=== PATIENT | female | born 1975 | race Caucasian/White ===

== ENCOUNTER 2017-06-07 04:23 | Emergency (ER) | payer OTHER, SELFPAY ==
--- NOTE | 2017-06-07 09:22 | RAD ---
ABDOMEN 2 VIEWS WITH CHEST 1 VIEW: Date: 06/07/17 HISTORY: 41-year-old female with syncope, blurry vision, passed out. FINDINGS: No acute intrathoracic disease. There are some mild increased markings in the lung bases, which could represent some mild subsegmental atelectasis versus chronic change. No evidence for bowel obstructio n, overt calculus, or free air. IMPRESSION: Unremarkable abdomen 2 views. Minimal patchy bibasilar parenchymal changes, nonspecific, possibly yulia e subsegmental atelectasis without confluent pneumonia. POS: [facility]
== END 2017-06-07 07:30 | disposition home or self-care (01) ==
LOC: ERS 04:23
DX: R55 Syncope and collapse (principal); R10.84 Generalized abdominal pain; H92.02 Otalgia, left ear; F17.210 Nicotine dependence, cigarettes, uncomplicated; Z86.73 Personal history of transient ischemic attack (TIA), and cerebral infarction without residual deficits
CPT/HCPCS: 74022; 93005; 99406

== ENCOUNTER 2017-06-17 02:22 | Emergency (ER) | payer SELFPAY ==
[2017-06-17 04:12] LABS: #Basophils 0.1 thou/uL (0.0-0.2); #Eosinphils 0.8 thou/uL (0.0-0.7); #Lymphocytes 3.6 thou/uL (1.20-3.40); #Monocytes 0.7 thou/uL (0.11-0.59); #Neutrophils 3.9 thou/uL (1.40-6.50); %Basophils 0.6 % (0.0-1.0); %Eosinophils 8.8 % (0.0-10.0); %Lymphocytes 39.5 % (21.0-51.0); %Monocytes 7.4 % (0.0-10.0); %Neutrophils 43.8 % (42.0-75.0); Hemoglobin 9.9 g/dL (12.0-16.0); Mean Corpuscular HGB CONC 31.4 g/dL (32.0-36.0); Mean Corpuscular Hemoglobin 29.6 pg (27.0-31.0); Mean Corpuscular Volume 94.5 fl (81.0-99.0); Mean Platelet Volume 7.5 fL (7.4-10.4); Platelet Count 318 thou/uL (130-400); RBC Distribution Width 16.4 % (11.5-14.5); Red Blood Cell (RBC) Count 3.35 mill/uL (4.20-5.40)
[2017-06-17 04:41] LABS: ALT (SGPT) 22 U/L (8-55); AST (SGOT) 20 U/L (5-34); Albumin 3.7 g/dL (3.5-5.0); Alkaline Phosphatase 94 U/L (40-150); Anion Gap 14 mmol/L (10-20); BUN (Urea Nitrogen) 7 mg/dL (7.0-18.7); Bilirubin, Total 0.2 mg/dL (0.2-1.2); Calc. Creatinine Clearance 0 mL/min (70-130); Calcium 8.8 mg/dL (7.8-10.44); Carbon Dioxide 21 mmol/L (22-29); Chloride 108 mmol/L (98-107); Estimated GFR-MDRD 87; Globulin 3.2 g/dL (2.4-3.5); Glucose 87 mg/dL (70-105); Potassium 3.4 mmol/L (3.5-5.1); Protein, Total 6.9 g/dL (6.0-8.3); Sodium 140 mmol/L (136-145)
== END 2017-06-17 05:23 | disposition home or self-care (01) ==
LOC: ERS 02:22
DX: K08.89 Other specified disorders of teeth and supporting structures (principal); F17.210 Nicotine dependence, cigarettes, uncomplicated
CPT/HCPCS: 80053; 85025; 99283

== ENCOUNTER 2017-07-21 10:08 | Emergency (ER) | payer SELFPAY ==
[2017-07-21 11:10] LABS: #Basophils 0.1 thou/uL (0.0-0.2); #Eosinphils 0.9 thou/uL (0.0-0.7); #Lymphocytes 2.5 thou/uL (1.20-3.40); #Monocytes 0.4 thou/uL (0.11-0.59); #Neutrophils 3.9 thou/uL (1.40-6.50); %Basophils 0.9 % (0.0-1.0); %Eosinophils 11.2 % (0.0-10.0); %Lymphocytes 32.3 % (21.0-51.0); %Monocytes 5.6 % (0.0-10.0); Hemoglobin 11.9 g/dL (12.0-16.0); Mean Corpuscular Hemoglobin 30.4 pg (27.0-31.0); Mean Corpuscular Volume 92.2 fl (81.0-99.0); Mean Platelet Volume 6.8 fL (7.4-10.4); Platelet Count 304 thou/uL (130-400); RBC Distribution Width 14.7 % (11.5-14.5); Red Blood Cell (RBC) Count 3.92 mill/uL (4.20-5.40); White Blood Cell (WBC) Count 7.9 thou/uL (4.8-10.8)
[2017-07-21 11:35] LABS: ALT (SGPT) 9 U/L (8-55); AST (SGOT) 15 U/L (5-34); Albumin 4.2 g/dL (3.5-5.0); Alkaline Phosphatase 65 U/L (40-150); Anion Gap 13 mmol/L (10-20); BUN (Urea Nitrogen) 7 mg/dL (7.0-18.7); Bilirubin, Total 0.2 mg/dL (0.2-1.2); Calc. Creatinine Clearance 0 mL/min (70-130); Calcium 9.2 mg/dL (7.8-10.44); Carbon Dioxide 22 mmol/L (22-29); Chloride 105 mmol/L (98-107); Estimated GFR-MDRD 83; Globulin 3.5 g/dL (2.4-3.5); Glucose 84 mg/dL (70-105); Lipase 12 U/L (8-78); Potassium 3.9 mmol/L (3.5-5.1); Protein, Total 7.7 g/dL (6.0-8.3); Sodium 136 mmol/L (136-145)
[2017-07-21 11:41] LABS: Bilirubin Negative (Negative); Blood, Urine Negative (Negative); Glucose, Urine (Dipstick) Negative (Negative); Leukocyte Negative (Negative); Nitrite Negative (Negative); Protein, Urine (Dipstick) Negative (Neg-Trace); Urobilinogen 0.2 mg/dL (0.2-1.0)
[2017-07-21 11:44] LABS: Clarity Clear (Clear); Pregnancy Test - Urine (BHCG) Negative (Negative); Pregu Control Background? CLEAR/WHITE (CLR/WHITE); Pregu Control Bar Appear? YES (CONTROL BAR); Specific Gravity 1.008 (1.002-1.036); Specific Gravity, Urine 1.008 (1.002-1.036)
[2017-07-21] MEDS ORDERED: ISOVUE-370 76%-LOCM 1 ML ONE (12:50)
[2017-07-21] MEDS ORDERED: Ondansetron PF 4 MG/2 ML Vial ONE (17:27)
[2017-07-21] MEDS ORDERED: Lidocaine Viscous Sol 2% 15 ml UD Cup ONE (19:04)
[2017-07-21] MEDS ORDERED: Mag-Al 1200 mg/1200 mg/30 ML UDCUP ONE (19:04)
[2017-07-21] MEDS ORDERED: Pantoprazole 40 MG VIAL ONE (19:04)
--- NOTE | 2017-07-21 19:59 | CT ---
CT ABDOMEN AND PELVIS WITH IV CONTRAST: 07/21/17 HISTORY: Abdomen pain. Abdominal wall hernias. COMPARISON: 07/11/15. FINDINGS: Lung bases are clear. Small cysts within the liver are stable. Follicles arise from the ovaries. A mi dline anterior pelvic hernia contains nonobstructed bowel, similar in volume to the previous exam. Fa t protrudes into a left lower quadrant anterior abdominal wall hernia which no longer contains bowel. There is no evidence of bowel obstruction. A rounded fat density lesion within the left lower quadra nt internally is stable and favored to represent a benign process. IMPRESSION: Anterior lower abdominal wall and pelvic wall hernias as detailed above. No evidence of bowel obstruc tion. They are not larger than on the 2016 exam. POS: [facility]
== END 2017-07-21 19:32 | disposition home or self-care (01) ==
LOC: ERS 10:08
DX: R10.33 Periumbilical pain (principal); I25.2 Old myocardial infarction; F17.210 Nicotine dependence, cigarettes, uncomplicated; Z79.891 Long term (current) use of opiate analgesic; Z79.899 Other long term (current) drug therapy
CPT/HCPCS: 36415; 74177; 80053; 81003; 81025; 83690; 85025; 96361; 96374; 96375; 96376; C9113; J2270; J2405

== ENCOUNTER 2017-09-13 09:10 | Emergency (ER) | payer SELFPAY ==
[2017-09-13 09:56] LABS: #Eosinphils 0.8 thou/uL (0.0-0.7); #Lymphocytes 2.8 thou/uL (1.20-3.40); #Monocytes 0.6 thou/uL (0.11-0.59); #Neutrophils 2.6 thou/uL (1.40-6.50); %Basophils 0.7 % (0.0-1.0); %Eosinophils 11.8 % (0.0-10.0); %Lymphocytes 41.2 % (21.0-51.0); %Monocytes 8.5 % (0.0-10.0); %Neutrophils 37.8 % (42.0-75.0); Hemoglobin 11.4 g/dL (12.0-16.0); Mean Corpuscular HGB CONC 33.1 g/dL (32.0-36.0); Mean Corpuscular Hemoglobin 30.2 pg (27.0-31.0); Mean Corpuscular Volume 91.2 fl (81.0-99.0); Platelet Count 225 thou/uL (130-400); RBC Distribution Width 14.3 % (11.5-14.5); Red Blood Cell (RBC) Count 3.76 mill/uL (4.20-5.40); White Blood Cell (WBC) Count 6.8 thou/uL (4.8-10.8)
[2017-09-13] MEDS ORDERED: Ondansetron ODT 4 MG TAB ONE (09:58)
[2017-09-13 09:59] LABS: Bilirubin Negative (Negative); Blood, Urine Negative (Negative); Clarity CLEAR (Clear); Glucose, Urine (Dipstick) Negative (Negative); Leukocyte Negative (Negative); Nitrite Negative (Negative); Protein, Urine (Dipstick) Negative (Neg-Trace); Specific Gravity, Urine 1.004 (1.002-1.036); Urobilinogen 0.2 mg/dL (0.2-1.0)
[2017-09-13 10:05] LABS: Pregnancy Test - Urine (BHCG) Negative (Negative); Pregu Control Background? CLEAR/WHITE (CLR/WHITE); Pregu Control Bar Appear? YES (CONTROL BAR); Specific Gravity 1.004 (1.002-1.036)
[2017-09-13 10:13] LABS: ALT (SGPT) 25 U/L (8-55); AST (SGOT) 22 U/L (5-34); Alkaline Phosphatase 73 U/L (40-150); Anion Gap 10 mmol/L (10-20); BUN (Urea Nitrogen) 5 mg/dL (7.0-18.7); Bilirubin, Total 0.3 mg/dL (0.2-1.2); Calc. Creatinine Clearance 0 mL/min (70-130); Calcium 9.2 mg/dL (7.8-10.44); Carbon Dioxide 27 mmol/L (22-29); Chloride 105 mmol/L (98-107); Estimated GFR-MDRD 83; Globulin 3.1 g/dL (2.4-3.5); Glucose 72 mg/dL (70-105); Lipase 23 U/L (8-78); Potassium 3.8 mmol/L (3.5-5.1); Protein, Total 7.1 g/dL (6.0-8.3); Sodium 138 mmol/L (136-145)
[2017-09-13] MEDS ORDERED: Acetaminophen 1,000 MG in Premix Bag 1 BAG IVPB SCH (10:15)
--- NOTE | 2017-09-13 14:18 | CT ---
CT ABDOMEN AND PELVIS WITH CONTRAST: Date: 09/13/17 HISTORY: Abdominal pain. COMPARISON: CT abdomen and pelvis dated 07/21/17. FINDINGS: The lung bases appear clear. No pericardial effusion. There are multiple ventral hernias containing both large and small bowel. There is a left paramidline hernia which now contains transverse colon, previously just fat. The midline infraumbilical ventral hernia contains small bowel. There is no evidence of obstruction. No dilated loops of large or small bowel. The liver, gallbladder, spleen, pancreas, and adrenal glands are unremarkable. No hydronephros is. Moderate degenerative disc space height loss at L5-S1 with end plate sclerosis. Remainder of the skel eton is unremarkable. IMPRESSION: Small and large bowel containing ventral hernias without evidence of obstruction. POS: [facility]
[2017-09-13] MEDS ORDERED: ISOVUE-370 76%-LOCM 1 ML ONE (14:22)
[2017-09-13] MEDS ORDERED: Iopamidol 370 76% 50 ML VIAL FS ONE (14:22)
== END 2017-09-13 13:27 | disposition home or self-care (01) ==
LOC: ERS 09:10
DX: K59.00 Constipation, unspecified (principal); Z86.73 Personal history of transient ischemic attack (TIA), and cerebral infarction without residual deficits; F17.210 Nicotine dependence, cigarettes, uncomplicated; I25.2 Old myocardial infarction; Z79.899 Other long term (current) drug therapy
CPT/HCPCS: 36415; 74177; 80053; 81003; 81025; 83690; 85025; J0131; Q0162